=== PATIENT | female | born 1995 | race Caucasian/White ===

== ENCOUNTER → 2017-11-01 | Outpatient (CLI) | payer OTHER ==
[~2017-11-01] MED LIST: DULO-24 PO
[2017-11-01 15:38] LABS: BASO % 0.3 %; BASO ABS # 0.02 K/uL (0-0.2); EOS % 2.2 %; EOS ABS # 0.17 K/uL (0-0.5); HEMATOCRIT 40.2 % (37-47); HEMOGLOBIN 13.9 g/dL (12.0-16.0); IG# 0.02 K/uL (0.00-0.02); LYMPH % 24.8 %; LYMPH ABS # 1.89 K/uL (1.2-3.4); MEAN CELL VOLUME 91.8 fL (80-100); MEAN CORPUSCULAR HEMOGLOBIN 31.7 pg (25-34); MEAN CORPUSCULAR HGB CONC 34.6 g/dl (32-36); MEAN PLATELET VOLUME 9.1 fL (7.4-10.4); MONO % 9.1 %; MONO ABS # 0.69 K/uL (0.11-0.59); NEUT % 63.3 %; NEUT ABS # 4.83 K/uL (1.4-6.5); PLATELET COUNT 347 K/uL (130-400); RED CELL DISTRIBUTION WIDTH CV 12.4 % (11.5-14.5); WHITE BLOOD COUNT 7.62 K/uL (4.8-10.8)
[2017-11-01 16:12] LABS: BLOOD UREA NITROGEN 15 mg/dl (7-18); CALCIUM 9.1 mg/dl (8.5-10.1); CARBON DIOXIDE 24 mmol/L (21-32); CREATININE 0.83 mg/dl (0.60-1.20); GLUCOSE 107 mg/dl (70-99); POTASSIUM 3.8 mmol/L (3.5-5.1); SODIUM 136 mmol/L (136-145)
[2017-11-01 16:50] LABS: HEP C IGG 13 YRS+OLDER_RFLX NEG (NEG)
[2017-11-03 13:04] LABS: QUANTIF MITOGEN-NIL 6.71 IU/ML; QUANTIFERON NEGATIVE (NEGATIVE); QUANTIFERON NIL 0.02 IU/ML
[2017-11-04 14:42] LABS: HEPATITIS BE ANTIBODY TC 556 Nonreactive
== END | disposition home or self-care (01) ==
LOC: C.LAB 13:57
PROVIDERS: ATTEND Pediatrics
DX: Z11.9 Encounter for screening for infectious and parasitic diseases, unspecified (principal); Z11.1 Encounter for screening for respiratory tuberculosis; Z13.0 Encounter for screening for diseases of the blood and blood-forming organs and certain disorders involving the immune mechanism; Z13.29 Encounter for screening for other suspected endocrine disorder; Z13.228 Encounter for screening for other metabolic disorders

== ENCOUNTER → 2018-01-05 | Outpatient (CLI) | payer OTHER | END | disposition home or self-care (01) | LOC: C.LAB 15:43 | PROVIDERS: ATTEND Pediatrics | DX: Z11.4 Encounter for screening for human immunodeficiency virus [HIV] (principal) ==